=== PATIENT | male | born 1985 | race Caucasian/White ===

== ENCOUNTER 2020-06-13 07:42 | Outpatient (CLI) | payer OTHER, SELFPAY ==
--- NOTE | 2020-06-13 | ECHO_ITS ---
Patient Info Name: Jeet Lanier Age: 34 years : 1985 Gender: Male Ht: 69 in Wt: 175 lbs BSA: 1.98 m2 HR: 67 bpm BP: 140 / 107 mmHg Heart Rhythm: Sinus Rhythm Exam Date: 06/13/2020 7:56 AM Exam Location: [facility] Patient Status: Outpatient Admit Date: 06/13/2020 Staff Ordering Physician: Parminder Valdez MD Billet Examiner: Sarah Ramirez RDCS Attending Provider: Parminder Valdez MD Referring Physician: José Miguel FIORE; Exam Type: CA echo doppler color flow Study Info Indications R07.9 - Chest pain, unspecified Complete two-dimensional, color flow and Doppler transthoracic echocardiogram is performed. Summary 1. Left ventricular chamber dimension is normal. 2. Left ventricular systolic function is normal, estimated at 65-70%. 3. The left ventricular diastolic function is normal. 4. E/e' 4 is not elevated. 5. There is trace tricuspid valve regurgitation. 6. No pulmonary hypertension, estimated pulmonary arterial systolic pressure is 19 mmHg. 7. There is trace pulmonic regurgitation. Left Ventricle E/e' 4 is not elevated. Left ventricular chamber dimension is normal. Left ventricular systolic function is normal, estimated at 65-70%. The left ventricular diastolic function is normal. Right Ventricle Right ventricular chamber dimension is normal. Right ventricular systolic function is normal. Left Atria Left atrial chamber dimension is normal. Right Atria Right atrial chamber dimension is normal. Aortic Valve The aortic valve is trileaflet. There is no aortic valve stenosis. There is no aortic valve regurgitation. Pulmonic Valve There is trace pulmonic regurgitation. Mitral Valve There is no mitral valve stenosis. There is no mitral valve regurgitation. Tricuspid Valve There is trace tricuspid valve regurgitation. No pulmonary hypertension, estimated pulmonary arterial systolic pressure is 19 mmHg. Pericardium/Pleural There is no pericardial effusion. Inferior Vena Cava Normal inferior vena cava with >50% collapse upon inspiration consistent with normal right atrial pressure, 5 mmHg. Aorta The aortic root size at the sinus of Valsalva is normal. Left Ventricular Outflow Tract Name Value Normal LVOT 2D LVOT Diameter 2.0 cm LVOT Doppler LVOT Peak Gradient 4 mmHg LVOT Mean Gradient 3 mmHg LVOT VTI 23 cm LVOT VTI/AV VTI Ratio 1.0 LVOT Stroke Volume 72 ml LVOT CO 4.0 l/min LVOT CI 2.0 l/min/m2 Pulmonic Valve Name Value Normal RVOT Doppler RVOT Peak Gradient 1 mmHg RVOT Mean Gradient 1 mmHg Mitral Valve
--- NOTE | 2020-06-18 16:12 | WPDHOLTEREM ---
Holter/Event Monitor Holter/Event Monitor Date of procedure: 06/13/20 Procedure Type: 48 hour holter monitor Indications: Chest pain Conclusion: 1. 48 hour holter monitor on 06/13/20. 2. Underlying rhythm is sinus rhythm. HR range 41-176 bpm; average HR 67 bpm. 3. No premature supraventricular complex. No supraventricular tachycardia. 4. There is one premature ventricular complex. No ventricular tachycardia. 5. No sinoatrial or atrioventricular blocks. No significant pauses greater than 2 seconds. 6. Patient reports symptoms of heart racing/palpitations which demonstrate sinus rhythm at 54 bpm.
== END 2020-06-13 07:43 | disposition home or self-care (01) ==
LOC: ANHCARD 07:45
PROVIDERS: PCP Emergency Medicine; Visit Provider Emergency Medicine
DX: R07.9 Chest pain, unspecified (principal)
CPT/HCPCS: 93225; 93226; 93306

== ENCOUNTER 2020-07-24 10:07 | Outpatient (CLI) | payer OTHER, SELFPAY ==
--- NOTE | 2020-07-24 10:13 | EST_ITS ---
Patient Info Name: Stuart Lanier Age: 34 years : 1985 Gender: Male Ht: 68 in Wt: 180 lbs BSA: 2.00 m2 Exam Date: 07/24/2020 10:20 AM Exam Location: [facility] Stress Patient Status: Outpatient Admit Date: 07/24/2020 Staff Ordering Physician: Cedric Lucas DO Attending Provider: Cedric Lucas DO Exercise Technologist: Deanna Solano RDCS Exercise Physician: Cedric Lucas DO Exam Type: CA stress test treadmill Study Info Indications R07.9 - Chest pain, unspecified A treadmill exercise stress test was performed. Summary 1. 1. Negative Tommy exercise stress test for ischemic ST changes by ECG criteria. 2. 2. Good functional capacity, achieving 11 METs of workload. 3. 3. Appropriate HR response to exercise. 4. 4. Appropriate HR recovery at 1 minute post exercise. 5. 5. No imaging with stress testing. 6. 6. Patient informed of the above results. Protocol: Tommy Stress ECG Details Stage: REST Duration (min): 7 min : 18 sec Speed (mph): 0.0 Grade (%): 0 HR (bpm): 66 SBP (mmHg): 133 DBP (mmHg): 84 METS: --- Stage: REST Duration (min): 9 min : 15 sec Speed (mph): 0.0 Grade (%): 0 HR (bpm): 83 SBP (mmHg): 133 DBP (mmHg): 84 METS: --- Stage: STAGE 1 Duration (min): 1 min : 0 sec Speed (mph): 1.7 Grade (%): 10 HR (bpm): 101 SBP (mmHg): 133 DBP (mmHg): 84 METS: --- Stage: STAGE 1 Duration (min): 2 min : 0 sec Speed (mph): 1.7 Grade (%): 10 HR (bpm): 113 SBP (mmHg): 133 DBP (mmHg): 84 METS: --- Stage: STAGE 1 Duration (min): 3 min : 0 sec Speed (mph): 1.7 Grade (%): 10 HR (bpm): 116 SBP (mmHg): 159 DBP (mmHg): 82 METS: --- Stage: STAGE 2 Duration (min): 1 min : 0 sec Speed (mph): 2.5 Grade (%): 12 HR (bpm): 124 SBP (mmHg): 159 DBP (mmHg): 82 METS: --- Stage: STAGE 2 Duration (min): 2 min : 0 sec Speed (mph): 2.5 Grade (%): 12 HR (bpm): 133 SBP (mmHg): 166 DBP (mmHg): 77 METS: --- Stage: STAGE 2 Duration (min): 3 min : 0 sec Speed (mph): 2.5 Grade (%): 12 HR (bpm): 141 SBP (mmHg): 166 DBP (mmHg): 77 METS: --- Stage: STAGE 3 Duration (min): 1 min : 0 sec Speed (mph): 3.4 Grade (%): 14 HR (bpm): 167 SBP (mmHg): 180 DBP (mmHg): 81 METS: --- Stage: STAGE 3 Duration (min): 2 min : 0 sec Speed (mph): 3.4 Grade (%): 14 HR (bpm): 173 SBP (mmHg): 180 DBP (mmHg): 81 METS: --- Stage: STAGE 3 Duration (min): 3 min : 0 sec Speed (mph): 3.4 Grade (%): 14 HR (bpm): 178 SBP (mmHg): 195 DBP (mmHg): 84 METS: --- Stage: STAGE 4 Duration (min): 0 min : 33 sec Speed (mph): 4.2 Grade (%): 16 HR (bpm): --- SBP (mmHg): 195 DBP (mmHg): 84 METS: --- Stage: RECOVERY Duration (min): 0 min : 26 sec Speed (mph):
== END 2020-07-24 10:08 | disposition home or self-care (01) ==
PROVIDERS: PCP Internal Medicine; Visit Provider Internal Medicine Cardiovascular Disease
DX: R07.9 Chest pain, unspecified (principal)
CPT/HCPCS: 93017

== ENCOUNTER 2020-10-10 13:04 | Outpatient (CLI) | payer OTHER, SELFPAY | END 2020-10-10 13:05 | disposition home or self-care (01) | LOC: ANHAUDASC 13:05 | PROVIDERS: PCP Internal Medicine; Visit Provider Otolaryngology | DX: H93.19 Tinnitus, unspecified ear (principal) | CPT/HCPCS: 92557; 92567 ==

== ENCOUNTER 2021-01-25 13:30 | Outpatient (CLI) | payer OTHER, SELFPAY | END 2021-01-25 13:31 | disposition home or self-care (01) | LOC: ANHCOVIDVC 13:30 | PROVIDERS: PCP Internal Medicine | DX: Z23 Encounter for immunization (principal) | CPT/HCPCS: 0001A; 91300 ==

== ENCOUNTER 2021-02-15 13:35 | Outpatient (CLI) | payer OTHER, SELFPAY | END 2021-02-15 13:36 | disposition home or self-care (01) | LOC: ANHCOVIDVC 13:35 | PROVIDERS: PCP Internal Medicine | DX: Z23 Encounter for immunization (principal) | CPT/HCPCS: 0002A; 91300 ==

== ENCOUNTER → 2021-03-20 13:41 | Outpatient (CLI) | payer OTHER, SELFPAY ==
--- NOTE | ~2021-03-20 | XR_ITS ---
EXAMINATION: XR abdomen/kub 1V EXAM DATE: 03/20/2021 13:58 INDICATION: R10.9 - Unspecified abdominal pain . TECHNIQUE: Frontal projection(s) of the abdomen for interpretation. There is no prior study for lena ibarra. FINDINGS: There is expected amount of colonic stool and gas. No small bowel dilation, nonobstructiv e bowel gas pattern. There are no suspicious calcifications identified. There is no organomegaly suspected. The bones are unremarkable. IMPRESSION: Unremarkable abdomen x-ray exam. Reviewed, dictated and finalized at location A.
== END ==
PROVIDERS: PCP Internal Medicine; Visit Provider Nurse Practitioner
DX: R10.9 Unspecified abdominal pain (principal)
CPT/HCPCS: 74018

== ENCOUNTER 2021-10-18 00:30 | Day surgery (SDC) | payer OTHER, SELFPAY ==
[2021-10-08 14:34] VITALS: BMI 22.0
--- NOTE | 2021-10-08 14:35 | PC.NURSE ---
Report to the Outpatient Waiting Room, entrance under the green pavilion located off [facility], at time _0600 on date __10/18/21 . OR Time: . - You and your visitor will be asked a series of questions to screen for COVID 19 for your protection. - A mask is required within the hospital. - Only one visitor is allowed at this time. Patient visitors will be guided where to wait when not with patient. Preoperative COVID Testing Requirements: No COVID Test needed if: (proof is required; if not received patient will have Rapid Test prior to entry) - Patient has received COVID Vaccine at least 14 days prior to procedure date or - Patient has positive COVID test result within last 90 days of surgery date. COVID Test needed if above criteria is not met If not COVID vaccinated a COVID test must be conducted within 72 hours of surgery and patient is asked to isolate self from time of testing until procedure. You will go to the [employer] [facility] Testing [facility] for your COVID testing. The [employer] [facility] Testing site is located at the corner of [address] [facility]. You will only be called if COVID results are positive and your surgeon may reschedule your elective surgery date. Patients may have clear liquids (water, carbonated beverages, clear teas, apple juice) until 3 hours prior to surgery with a maximum of 20 ounces. - No food from midnight until time of surgery - Infants may have breast milk until 4 hours before surgery, infant formula 6 hours prior to surgery. - Children will be allowed to drink immediately following surgery. If applicable, please bring a bottle or sippy cup to assist with drinking. Juice, water, soda, and popsicles are readily available. For infants on formula, please bring formula the day of surgery. Pacifiers are allowed. Take the following medications with a SIP of water the morning of surgery: Medications to discontinue per physician Mulitvitamin 3 days prior Date to take last dose Please no make-up, nail luxembourgish, hairspray, perfume, deodorant, or body powder the day of surgery. No jewelry (including any body piercings) or valuables the day of surgery, leave them at home. Please take a shower or bath the night before, or the morning of, surgery with an antibacterial soap. Wear comfortable, loose fitting clothing. Children are encouraged to wear pajamas. - Jewelry must be removed prior to entering the operating room. Rings and piercings that are not removed may be cut off. - The hospital will not accept responsibility for valuables. - Please leave all valuables, including medications, at home the day of surgery. If you are going home after surgery, a licensed food mobile driver must drive you home. - NO public transportation without another adult. - We recommend that an adult stay with you for 24 hours following discharge. - We also recommend that you do not drive, make important decision, drink alcoholic beverages, or take any drugs that were not prescribed by your health care provider for at least 24 hours after your discharge time. For Pediatric surgeries, we recommend two adults accompany the child home (only one inside the building at this time). Follow any additional instructions given to you from your surgeon. Telephone instructions given to _patient and asked if any additional questions and then verbalized understanding. Patient advised to call surgeon office or pre surgery nurse liaison [phone] if any additional questions.
--- NOTE | 2021-10-17 07:42 | PM.IMHP ---
H&P: HPI History of Present Illness Date/Time: 10/17/21 07:42 Chief Complaint: Septal deviation, turbinate hypertrophy, nasal obstruction, nasal congestion Narrative: patient presents for planned surgical procedure, no change in symptoms no change in history. Review of Systems Constitutional: Constitutional: Denies fatigue, Denies fever(s) and Denies lethargy Eyes: Eyes: Denies blurry vision and Denies change in vision ENT: Reports as per HPI Cardiovascular: Cardiovascular: Denies chest pain Respiratory: Respiratory: Denies cough Endocrine: Endocrine: Denies fatigue Hematologic/Lymphatic: Hematologic/Lymphatic: Denies easy bleeding, Denies easy bruising and Denies lymphadenopathy Allergic/Immunologic: Allergic/Immunologic: Denies seasonal rhinorrhea [facility] Past Medical History Medical History Eosinophilia, unspecified Social History Social History Smoking status: Never smoker Second hand tobacco smoke exposure: No Alcohol intake: never Alcohol use details: Social Substance use: never Substance use type: does not use Gender identity (if verbalized by the patient): Male Sexual Orientation (if Verbalized by the Patient): Straight or Heterosexual Spiritual care concerns: No Agree to blood products: Yes Meds Home Medications and Allergies Home Medications Medication Instructions Recorded Confirmed Type finasteride 1 mg tablet 1 mg PO DAILY 06/18/20 10/10/21 History multivitamin 1 tablet PO DAILY 03/20/21 10/10/21 History irbesartan 150 See Rx Instructions .ROUTE 06/19/21 10/10/21 Rx mg-hydrochlorothiazide 12.5 mg .COMPLEX #90 tablet tablet Allergies Allergy/AdvReac Type Severity Reaction Status Date / Time amlodipine AdvReac Severe Accelerated Verified 10/10/21 15:07 heart rate Exam Const: General: cooperative, healthy appearing, comfortable, well developed and alert HENMT: Head: normal to inspection, normocephalic and atraumatic Ears: hearing grossly normal bilaterally, external ears normal, TM's normal bilaterally and EAC's normal General nose exam: Normal external nose present, Normal nares present and Other nasal findings present ( Septal deviation turbinate hypertrophy valve collapse right) Face and sinus: normal facial exam Mouth: Yes Normal oral and palatal mucosa present, Yes lip normal, Yes tongue normal, Yes oropharynx normal and Yes moist mucous membranes Teeth and gingiva: dentition normal and gingiva normal Throat: posterior oropharynx normal, tonsils normal and uvula midline Eyes: General: appearance normal, both eyes and all related structures Periorbital: periorbital findings normal Eyelids: eyelids normal Conjunctivae: conjunctivae normal Sclera: sclerae normal Neck: Neck: normal visual inspection, full ROM and no lymphadenopathy Thyroid: thyroid normal Lymphatic: no lymphadenopathy noted Resp: Effort & Inspection: normal respiratory effort and able to speak in complete sentences Cardio: Jugular venous distension: no JVD Neuro: Cranial nerves: Yes CN's II-XII intact bilaterally Assessment and Plan Assessment and plan (1) Nasal valve collapse: Code(s): J34.89 - Other specified disorders of nose and nasal sinuses Status: Acute Assessment and Plan: plan is for the operating room for endoscopic assisted septoplasty and inferior turbinate reduction submucosally with outfracture. Patient voiced understanding of the risks and benefits as well as costs. Risks discussed included failure to improve nasal valve collapse, septal perforation, regrowth of turbinates, blindness CSF leak change in vision brain damage postoperative bleeding need for time off of work and postoperative pain as well as the failure to resolve symptoms. Patient voiced understanding of all these and agreed total operative time approximately 1 h
[2021-10-18] VITALS (8 sets, daily range): BP systolic 122–152; BP diastolic 79–91; PULSE 50–86; RESP 12–16; TEMP 36.8–36.9; O2SAT 97–100
--- NOTE | 2021-10-18 07:04 | WPDHPUPDATE1 ---
History and Physical Update Update Date/Time: 10/18/21 07:04 History and Physical has been reviewed, including an updated exam of the patient. There are NO changes in the patient's condition. Risks, benefits, and alternatives have been discussed and questions answered. Patient agrees to proceed with procedure.
--- NOTE | 2021-10-18 07:16 | P.PNAN_ITS ---
Anes - Initial Pre Proc Eval Procedure: Operation Date: 10/18/21 07:30 Proposed Procedures p Bilateral Inferior Turbinectomy - Shekhar Smith MD s Endoscopic Septoplasty - Shekhar Smith MD Date/Time: 10/18/21 07:16 Surgeon: Shekhar Smith MD Pre Op Diagnosis: septal deviation, nasal valve collapse Patient Data Age: 36 Gender: M Height: 1.73 m Weight: 65.77 kg Allergies Allergy/AdvReac Type Severity Reaction Status Date / Time amlodipine AdvReac Severe Accelerated Verified 10/10/21 15:07 heart rate Home Medications Medication Instructions Recorded Confirmed Type finasteride 1 mg tablet 1 mg PO DAILY 06/18/20 10/10/21 History multivitamin 1 tablet PO DAILY 03/20/21 10/10/21 History irbesartan 150 See Rx Instructions .ROUTE 06/19/21 10/10/21 Rx mg-hydrochlorothiazide 12.5 mg .COMPLEX #90 tablet tablet Patient hx anesthesia problems: none Family hx anesthesia problems: none Results Review: All pre-operative results and documents have been reviewed as part of the pre-operative evaluation. [facility] Past Medical History Medical History Eosinophilia, unspecified Social History Social History Smoking status: Never smoker Second hand tobacco smoke exposure: No Alcohol intake: never Alcohol use details: Social Substance use: never Substance use type: does not use Living arrangements: alone Gender identity (if verbalized by the patient): Male Sexual Orientation (if Verbalized by the Patient): Straight or Heterosexual Spiritual care concerns: No Agree to blood products: Yes Anes - Eval Final PreProcedure Day of Procedure 10/18/21 07:16 Patient weight: normal Heart: regular rate and rhythm Lungs: clear to auscultation and normal air movement Airway: Mallampati scale class II Neurological: alert and oriented Last oral intake: >/= 8 hours ASA classification: II Emergent: no Anesthetic plan: proceed Anesthesia type and monitoring: general ETT Results Review: All pre-operative results and documents have been reviewed as part of the pre-operative evaluation. Informed Consent: The patient's anesthetic plan and its attendant risks and benefits were discussed with the patient/family/POA. Questions were solicited and answers provided to the satisfaction of the patient/family/POA.
[2021-10-18] MEDS: ACETAMINOPHEN 500 MG TABLET 1000 MG PO (07:21)
[2021-10-18] MEDS: LACTATED RINGERS 1,000 ML 30 ML IV CONT ×2 (07:30→09:20)
[2021-10-18] MEDS: ceFAZolin 2 GM/D5W 50 ML 2 GM/50 ML BAG IVPB (07:35)
[2021-10-18] MEDS: OXYMETAZOLINE HCL 0.05% NAS 15 ML BTL (*BKC) 1 SPRAY NASAL (07:47)
[2021-10-18 07:56] LABS: Anion Gap 8 mmol/L (8-16); Blood Urea Nitrogen 17 mg/dL (9-20); Calcium 9.4 mg/dL (8.4-10.2); Carbon Dioxide 28 mmol/L (22-30); Chloride 103 mmol/L (98-107); Estimated CRCL calculation 117 ml/min; Estimated Glomerular Filt Rate > 60; Glucose 95 mg/dL (65-110); Sodium 139 mmol/L (137-145)
[2021-10-18] MEDS: LIDO 1%/EPINEPHRINE 1:100,000 50 ML VIAL INFILTRATE (08:55)
--- NOTE | 2021-10-18 09:27 | P.OP_ITS ---
Procedure Note - Detailed Date of Procedure 10/18/21 Pre-op Diagnosis septal deviation, nasal obstruction, nasal congestion, inferior turbinate hypertrophy Post-op Diagnosis same Procedure Performed 1. Endoscopic assisted septoplasty 2. Bilateral inferior turbinate submucosal resection with outfracture Surgeon Shekhar Smith MD Anesthesia general Indications See above Findings Severely deviated left inferior well left globally septum caudally as well good patent airway postoperatively no bilateral perforations no complications Description of Procedure Patient correctly identified. Consent verified. Patient brought operating room. Time-out performed. General anesthesia induced endotracheal tube secured patient prepped and draped her for mentioned procedure. Second time-out performed. Afrin-soaked pledgets placed in bilateral nasal passages allowed to sit for 5 minutes. 10 cc of 1% lidocaine with 1 100,000 parts epinephrine injected in the bilateral submucoperichondrial region of the septum as well as anterior portions of the inferior turbinates. [place] incision made fairly anterior on the left side left-sided mucoperichondrial flap elevated the septum septum transected right-sided mucoperichondrial flap elevated deviated septum removed with osteotome Arnold Nance scissors Arnold Nance forceps and Jackson forceps. Of note following this there was so much redundant mucosa that the mucosa was excess mucosa was actually removed creating a perforation and then quilted to close the perforation. Anterior portion of the inferior turbinates entered with a 2.9 mm turbinate blade debrided the submucoperichondrial rib X submucosal region then outfractured right had a mulberry tip this was cauterized with Bovie suction electrocautery at a setting of 10 with very good reduction. Bilateral nasal passages suction to the posterior choana. Sanchez splints placed sutured anteriorly with 3-0 nylon suture. Total blood loss 5 cc. I performed all dictated portions of the procedure. Of note the anterior [place] incision was closed with 4 interrupted 5 0 fast gut sutures. Care the patient was turned over to Anesthesiology. Implants Sanchez splints Estimated Blood Loss -5.0 Drains No Packing No Pathology none sent Complications No immediate complications Condition stable Disposition PACU
[2021-10-18] MEDS: fentaNYL CITRATE INJ (*CRX) 100 MCG/2 ML VIAL 25 MCG IV PUSH ×2 (09:40→09:43)
[2021-10-18] MEDS: oxyCODONE HCL (*CRX) 5 MG TAB IR PO (10:34)
== END 2021-10-18 11:20 | disposition home or self-care (01) ==
PROVIDERS: Anesthesiology; PCP Internal Medicine; Visit Provider Otolaryngology
PROC: (CPT 30520; principal; 2021-10-18 07:30)
PROC: (CPT 30520; 2021-10-18 07:30)
DX: J34.2 Deviated nasal septum (principal); J34.3 Hypertrophy of nasal turbinates; R09.81 Nasal congestion; J34.89 Other specified disorders of nose and nasal sinuses
CPT/HCPCS: 30520; 30140; 36415; 80048; A9270; J0330; J0690; J1100; J2250; J2704; J3010; J7120